=== PATIENT | female | born 1960 | race Caucasian/White ===

== ENCOUNTER 2017-12-14 13:55 | Observation (INO) ==
[2017-12-14] MEDS ORDERED: Aspirin 81 MG TAB.CHEW PO ONE (14:05)
--- NOTE | 2017-12-14 14:05 | Emergency Department Note ---
Disposition Clinical Impression: Tachycardia Acute exacerbation of CHF (congestive heart failure) Qualifiers: Heart failure type: combined systolic and diastolic Qualified Code(s): I50.43 - Acute on chronic combined systolic (congestive) and diastolic (congestive) heart failure Chest pain Qualifiers: Chest pain type: precordial pain Qualified Code(s): R07.2 - Precordial pain Cardiomyopathy Qualifiers: Cardiomyopathy type: unspecified Qualified Code(s): I42.9 - Cardiomyopathy, unspecified Dyspnea Qualifiers: Dyspnea type: shortness of breath Qualified Code(s): R06.02 - Shortness of breath; R06.00 - Dyspnea, unspecified; R06.01 - Orthopnea Disposition: Admitted As Inpatient Condition: Good Referrals: Belinda Capellan [Primary Care Provider] - Forms: ED Satisfaction Letter Chest Pain HPI - General Chief Complaint: ED Upper Respiratory Infection Stated Complaint: Chest tightness with back pain Time Seen by Provider: 12/14/17 14:00 Source: patient Mode of arrival: private vehicle Limitations: no limitations Vital Signs Reviewed: Yes Nursing Notes Reviewed: Yes - History of Present Illness HPI Narrative: Patient presents with history of increasing shortness of breath over the prior day. She has had dyspnea on exertion and orthopnea. She states she cannot lay down. With this she has chest tightness which she states is due to her breathing. She does have back pain is noted to have chronic back pain. She states that she has had increased oxygen need and she usually uses oxygen at night. She will reports a slight cough which is nonproductive. She questions low-grade fever or chills. She denies any increased lower external he swelling but think she is maybe gained a couple pounds. She denies diaphoresis, nausea or recent change in medicines. She relates she had something similar couple weeks ago and was admitted to [facility] with congestive heart failure. She states this feels like her typical congestive heart failure. She relates that at home she has had a heart rate of about 108 and her blood pressures have been high for her. She states she had a reading of 168 /114 at home. Pt complaint: chest pain, other (Shortness of breath) Onset (ago): day(s) (1) Duration: gradually worsening Onset: during rest Pain Location: left chest, right chest Severity: mild, moderate Quality: tightness Pain Radiation: back Improves with: rest Worsens with: exertion, supine Associated symptoms: Reports: dyspnea, fever. Denies: nausea, vomiting, diaphoresis, syncope, palpitations, cough, leg swelling Treatments prior to arrival chest pain: none - Related Data Home Medications Medication Instructions Recorded Confirmed Losartan [Cozaar] 100 mg PO DAILY 04/29/15 12/14/17 Atorvastatin [Lipitor] 40 mg PO HS 05/09/17 12/14/17 Carvedilol [Coreg] 25 mg PO BIDWM 05/09/17 12/14/17 Diltiazem HCl [Diltiazem 12Hr ER] 120 mg PO DAILY 05/09/17 12/14/17 Potassium Chloride [K-Tab ER] 40 meq PO TID 05/09/17 12/14/17 Spironolactone [Aldactone] 25 mg PO DAILY 05/09/17 12/14/17 Bumetanide [Bumex] 1 mg PO BID 10/05/17 12/14/17 Polyethylene Glycol 3350 [MiraLAX] 17 gm PO DAILY 11/17/17 12/14/17 Sertraline [Zoloft] 100 mg PO DAILY 11/17/17 12/14/17 Alendronate Sodium [Fosamax] 70 mg PO QWEEK 11/22/17 12/14/17 Baclofen 20 mg PO TID 11/22/17 12/14/17 Cyclobenzaprine [Flexeril] 10 mg PO TID PRN 11/22/17 12/14/17 Ranitidine HCl [Acid Efficiency Analyst] 150 mg PO BID 11/22/17 12/14/17 Rivaroxaban [Xarelto] 10 mg PO DAILY 11/22/17 12/14/17 Tramadol HCl [Ultram] 50 mg PO QID PRN 11/22/17 12/14/17 Previous Rx's Medication Instructions Recorded HYDROcodone/Acet 5/325 mg [[place] 1 tab PO Q6H PRN #16 tab 09/06/17 5-325 mg] Metoprolol [Lopressor] 12.5 mg PO BID tablet 11/26/17 Nitrofurantoin (BID) [Macrobid] 100 mg PO BIDWM #12 capsule 11/26/17 Omeprazole [PriLOSEC] 40 mg PO DAILY #30 capsule. 11/26/17 Ondansetron ODT [Zofran ODT] 4 mg PO TID PRN #24 tab.rapdis 11/26/17 Phenazopyridine [Pyridium] 200 mg PO TID #8 tablet 11/26/17 Allergies Allergy/AdvReac Type Severity Reaction Status Date / Time diphenhydramine Allergy Rash Verified 11/22/17 13:50 [From Benadryl] morphine Allergy Rash Verified 11/22/17 13:50 Tetanus Vaccines and Toxoid Allergy See Verified 11/22/17 13:50 [Tetanus Vaccines & Toxoid] Comments All systems ED: reviewed and negative except as stated. Chest Pain PMH - Past Medical History Medical history: Reports: atrial fibrillation (With anticoagulation), cardiomyopathy (Ejection fraction 15-20% with chronic diastolic dysfunction), CHF, hyperlipidemia, hypertension, valvular heart disease, other (Chronic back pain, chronic elevated troponin thought secondary to demand ischemia (0.03-0.07) ) Surgical history: Reports: appendectomy, cholecystectomy, hysterectomy, pacemaker/AICD, other (Bilateral carpal tunnel, right hip tumor removal) Psychiatric history: Reports: anxiety, depression [employer]MED SECURITY PROFESSIONAL history: Reports: no [employer]MED SECURITY PROFESSIONAL history - Social History Smoking Status: Never smoker Alcohol use: Reports: none Drug use: Reports: none Physical Exam - General Limitations: no limitations General appearance: alert, in distress (Mild) - Head Head exam: atraumatic, normocephalic, normal inspection - Eye Eye exam: Present: normal appearance, PERRL, EOMI. Absent: scleral icterus, conjunctival injection - ENT ENT exam: normal exam, normal oropharynx, mucous membranes moist - Neck Neck exam: Present: normal inspection, full ROM, trachea midline. Absent: tenderness, lymphadenopathy - Chest Chest inspection: Present: normal inspection, symmetric chest wall rise. Absent : tenderness - Respiratory Respiratory exam: Present: normal lung sounds bilaterally. Absent: respiratory distress, wheezes, prolonged expiratory phase - Cardiovascular Cardiovascular exam: Present: regular rate, normal rhythm, tachycardia, normal heart sounds. Absent: JVD - Abdominal Exam Abdominal exam: Present: soft, Non-Tender, normal bowel sounds. Absent: tenderness, distention, guarding, rebound, rigidity - Extremities Exam Extremities exam: Present: normal inspection, full ROM, normal capillary refill. Absent: tenderness, pedal edema, calf tenderness - Expanded Lower Extremity Exam Neurovascular/Tendon exam: Present: normal capillary refill. Absent: motor deficit, sensory deficit, tendon deficit Gait: observed and normal - Back Exam Back exam: Present: normal inspection, full ROM. Absent: tenderness - Neurological Exam Neurological exam: Present: alert, oriented X3, normal gait - Psychiatric Psychiatric exam: Present: normal affect, normal mood. Absent: agitated, anxious - Skin Skin exam: Present: warm, dry, intact, normal color. Absent: diaphoresis, pallor Course Course Narrative: 1505: With return of lab, EKG and x-ray reviewed the patient's results and extensive recent testing with her. She remains mildly dyspneic with a heart rate in the range of 120 to 130 with frequent PVCs. I recommended further observation on monitor with some careful diuresis. I do not believe that transfer to tertiary facility will likely result in further testing or outcome. The patient has now had to urinate after her dose of Lasix and we will be sending him back given her initial low-grade temperature. Repeat oral temperature was 98.4. A page has been placed to Dr. Tuttle to discuss her observation at this facility. Her ultimate disposition will be coordinated after this discussion. 1515: Care has been discussed with Dr. Tuttle. He is agreeable with observation at this facility. Verbal orders are obtained for her observation period Vital Signs Temperature 100.9 F H 12/14/17 13:59 Pulse Rate 132 12/14/17 13:59 Respiratory Rate 24 12/14/17 13:59 Blood Pressure 166/84 12/14/17 13:59 O2 Sat by Pulse Oximetry 94 12/14/17 13:59 Temperature 100.9 F H 12/14/17 13:59 Pulse Rate 125 12/14/17 14:49 Respiratory Rate 15 12/14/17 14:49 Blood Pressure 151/99 12/14/17 14:49 O2 Sat by Pulse Oximetry 95 12/14/17 14:49 Oxygen Delivery Oxygen Delivery Nasal Cannula Chest Pain - Differential Diagnosis Likely: atypical chest pain, chest pain - Medical Records Medical records reviewed: Yes I reviewed the patient's medical records. Patient's admission from November 20 his been reviewed. She did have extensive evaluation. She had a echocardiogram showing an ejection fraction of 15-20% with diastolic dysfunction and some valvular heart disease. She had negative CT PE study, CT abdomen and pelvis, bilateral lower extremity venous Dopplers and EGD. It is noted in the records that she had a negative heart catheterization at [place] in September 2017. - Lab Data Lab results reviewed: Yes I reviewed the patient's lab results. Result diagrams: 12/14/17 14:25 12/14/17 14:25 Lab Results 12/14/17 12/14/17 12/14/17 Range/Units 14:25 14:25 14:25 WBC 10.1 (4.3-11.1) K/mcL RBC 4.39 (3.82-4.97) M/mcL Hgb 13.3 (11.5-15.4) g/dL Hct 40.5 (35.3-44.9) % MCV 92.3 (83.0-100.0) fL MCH 30.3 (28.0-33.3) pg MCHC 32.8 (31.6-35.5) g/dL RDW 15.4 H (11.5-14.5) % Plt Count 260 (140-400) K/mcL MPV 10.6 (9.4-12.4) fL Immature Gran % 0.4 (0-4) % Seg Neutrophils % 77.7 % Lymphocytes % 15.7 % Monocytes % 3.7 % Eosinophils % 2.1 % Basophils % 0.4 % Neutrophils # 7.9 (1.6-8.9) K/mcL Lymphocytes # 1.6 (0.6-4.6) K/mcL Monocytes # 0.4 (0.0-1.3) K/mcL Eosinophils # 0.2 (0.0-0.6) K/mcL Basophils # 0.0 (0.0-0.2) K/mcL PT 12.1 (9.4-12.1) Seconds INR 1.1 APTT 28.1 (26.0-36.0) Seconds Sodium (136-145) mEq/L Potassium (3.5-5.1) mEq/L Chloride (98-107) mEq/L Carbon Dioxide (23-29) mEq/L BUN (6-20) mg/dL Creatinine (0.60-1.20) mg/dL Est GFR ( Amer) (> 60) Est GFR (Non-Af Amer) (> 60) BUN/Creatinine Ratio (6-26) Glucose (70-105) mg/dL Calculated Osmolality (280-300) Lactic Acid (0.5-2.2) mmol/L Calcium (8.6-10.3) mg/dL Troponin I (< 0.04) ng/mL B-Natriuretic Peptide 857 H (Less than 100) pg/mL 12/14/17 12/14/17 Range/Units 14:25 14:25 WBC (4.3-11.1) K/mcL RBC (3.82-4.97) M/mcL Hgb (11.5-15.4) g/dL Hct (35.3-44.9) % MCV (83.0-100.0) fL MCH (28.0-33.3) pg MCHC (31.6-35.5) g/dL RDW (11.5-14.5) % Plt Count (140-400) K/mcL MPV (9.4-12.4) fL Immature Gran % (0-4) % Seg Neutrophils % % Lymphocytes % % Monocytes % % Eosinophils % % Basophils % % Neutrophils # (1.6-8.9) K/mcL Lymphocytes # (0.6-4.6) K/mcL Monocytes # (0.0-1.3) K/mcL Eosinophils # (0.0-0.6) K/mcL Basophils # (0.0-0.2) K/mcL PT (9.4-12.1) Seconds INR APTT (26.0-36.0) Seconds Sodium 139 (136-145) mEq/L Potassium 3.9 (3.5-5.1) mEq/L Chloride 104 (98-107) mEq/L Carbon Dioxide 26 (23-29) mEq/L BUN 21 H (6-20) mg/dL Creatinine 0.91 (0.60-1.20) mg/dL Est GFR ( Amer) > 60 (> 60) Est GFR (Non-Af Amer) > 60 (> 60) BUN/Creatinine Ratio 23 (6-26) Glucose 132 H (70-105) mg/dL Calculated Osmolality 293 (280-300) Lactic Acid 1.5 (0.5-2.2) mmol/L Calcium 9.8 (8.6-10.3) mg/dL Troponin I 0.03 (< 0.04) ng/mL B-Natriuretic Peptide (Less than 100) pg/mL - Radiology Data Radiology results reviewed: Yes I reviewed the patient's radiology results. Single view chest x-rays performed. This shows marked cardiomegaly with interstitial increased lung markings consistent with pulmonary edema. I do not see evidence for effusion or local infiltrate. This is on my interpretation. Impressions Chest X-Ray 12/14/17 14:05 IMPRESSION: 1. Central congestion without overt pulmonary edema. 2. Small left pleural effusion. 3. Stable mild to moderate enlargement of the cardiac silhouette. D/ / Jonathan Red MD / Jonathan Red MD Interpreting Provider: Jonathan Red MD - EKG Data EKG attestation: Yes I reviewed and interpreted this EKG. EKG results narrative: EKG demonstrates electronic paced rhythm with a rate of 127, axis of 94, AR interval 119 a QT/QTC of 355/4:30. She does have a PVC present. No other acute abnormalities are noted. This is on my interpretation. Interpretation: no acute changes Heart Score - Score History: Moderately Suspicious EKG: Normal Age: 45-65 Risk Factors: Equal/Greater than 3 risk factor or history of atherosclerotic disease Troponin: Less than normal limit HEART Score Total: 4
[2017-12-14] MEDS ORDERED: *HR* HYDROcodone/Acet 5/325 mg TABLET PO ONE (14:31)
[2017-12-14] MEDS ORDERED: Furosemide 40 MG/4 ML VIAL IVP ONE (14:31)
[2017-12-14] MEDS ORDERED: Ondansetron 4 MG/2 ML VIAL IVP ONE (14:31)
[2017-12-14 14:43] LABS: Basophils % 0.4 %; Eosinophils # 0.2 K/mcL (0.0-0.6); Eosinophils % 2.1 %; Hematocrit 40.5 % (35.3-44.9); Hemoglobin 13.3 g/dL (11.5-15.4); Immature Granulocytes % 0.4 % (0-4); Lymphocytes # 1.6 K/mcL (0.6-4.6); Lymphocytes % 15.7 %; Mean Corpuscular HGB Conc 32.8 g/dL (31.6-35.5); Mean Corpuscular Hemoglobin 30.3 pg (28.0-33.3); Mean Corpuscular Volume 92.3 fL (83.0-100.0); Mean Platelet Volume 10.6 fL (9.4-12.4); Monocytes # 0.4 K/mcL (0.0-1.3); Monocytes % 3.7 %; Neutrophils # 7.9 K/mcL (1.6-8.9); Platelet Count 260 K/mcL (140-400); Red Blood Count 4.39 M/mcL (3.82-4.97); Red Cell Distribution Width 15.4 % (11.5-14.5); Segmented Neutrophils % 77.7 %
[2017-12-14 14:46] LABS: INR 1.1; Prothrombin Time 12.1 Seconds (9.4-12.1)
[2017-12-14 14:49] LABS: Activated Partial Thrombo Time 28.1 Seconds (26.0-36.0)
[2017-12-14 14:57] LABS: BUN/Creatinine Ratio 23 (6-26); Blood Urea Nitrogen 21 mg/dL (6-20); Calcium 9.8 mg/dL (8.6-10.3); Carbon Dioxide 26 mEq/L (23-29); Chloride 104 mEq/L (98-107); Glucose 132 mg/dL (70-105); Osmolality,Calculated 293 (280-300); Potassium 3.9 mEq/L (3.5-5.1); Sodium 139 mEq/L (136-145); eGFR For African Americans > 60 (> 60); eGFR For Non-African Americans > 60 (> 60)
[2017-12-14 14:58] LABS: Troponin I 0.03 ng/mL (< 0.04)
[2017-12-14 15:25] LABS: Bilirubin,Urine Negative (Negative); Blood,Urine Negative (Negative); Clarity,Urine Slightly Cloudy (Clear); Glucose,Urine (UA) Normal (Normal); Ketones,Urine Negative (Negative); Leukocyte Esterase,Urine Small (Negative); Nitrite,Urine Negative (Negative); PH,Urine 7.5 pH Units (5.0-8.0); Protein,Urine 30 mg/dL (Neg-Trace); Urobilinogen,Urine Normal (Normal)
[2017-12-14 15:30] LABS: Color,Urine Light Yellow (Yellow)
[2017-12-14 15:33] LABS: RBC,Urine 0-3 per hpf (0-3); Squamous Epithelial Cell,Urine Moderate per lpf (None-Few)
[2017-12-14 15:34] LABS: Bacteria,Urine Moderate per hpf (None-Few)
--- NOTE | 2017-12-14 16:23 | Electrocardiograph Report ---
[place] [id number] Test Date: 2017-12-14 Pat Name: Shani Bustos Department: 9201 Room: [facility] Gender: F Visual Education Director: [id number] : 1960 Requested By: Ramón Francisco Order Number: [id number] Reading MD: Charlie Frank Measurements Intervals [place] Rate: 127 P: 74 [place]: 119 QRS: 94 QRSD: 118 T: 42 QT: 355 QTc: 430 Interpretive Statements ELECTRONIC VENTRICULAR PACEMAKER ABNORMAL RHYTHM ECG Electronically Signed On 12-14-2017 16:21:54 EDT by Charlie Frank
[2017-12-14] MEDS ORDERED: Naloxone 0.4 MG/ML INJ IVP PRN (17:46)
[2017-12-14] MEDS: *HR* HYDROcodone/Acet 5/325 mg TABLET PO PRN (18:18)
--- NOTE | 2017-12-14 19:37 | Internal Med History&Physical ---
Date of Encounter: 12/14/17 Time of Encounter: 18:50 Assessment and Plan (1) Chest pain Current visit: Yes Status: Acute Doubt myocardial ischemic origin from history and physical. There appears to be a chest wall component. I will give her a dose of Naprosyn and start prednisone for anti-inflammatory/pain Qualifiers: Chest pain type: precordial pain Qualified Code(s): R07.2 - Precordial pain (2) Cardiomyopathy Current visit: Yes Status: Acute Nonischemic cardiomyopathy. We will continue present regimen and start low- dose isosorbide. Qualifiers: Cardiomyopathy type: unspecified Qualified Code(s): I42.9 - Cardiomyopathy , unspecified (3) Atrial fibrillation Current visit: Yes Status: Chronic Continue Xarelto, Coreg and Cardizem. Will add Lanoxin for rate control. Qualifiers: Atrial fibrillation type: unspecified Qualified Code(s): I48.91 - Unspecified atrial fibrillation (4) Hypertension Current visit: No Status: Chronic Continue Bumex, Coreg, Cardizem, Cozaar, and Aldactone. Qualifiers: Hypertension type: essential hypertension Qualified Code(s): I10 - Essential (primary) hypertension Internal Medicine - H&P: HPI Chief complaint: Dyspnea and chest discomfort Admitted From: Emergency Dept Plans for Post Hospital Care: Home History of present illness: Ms. Bustos is a 57 year old female who came to emergency room stating she had chest discomfort intermittently for several weeks and worsening dyspnea on exertion. She describes the chest discomfort as a "tightness" that was intermittent and not related consistently to activity. Her dyspnea was related to activity and has been increasing in severity for several months. She has orthopnea consistently. She was evaluated in emergency room and admitted to [facility] floor for ongoing care needs. Her cardiovascular history is significant for hypertension and chronic atrial fibrillation. She had ICD/pacemaker placed in 2002 for nonischemic cardiomyopathy. She had replacement unit in September 2013. She had heart catheter in 2008 which was negative and reports a repeat heart catheter done in September 2017 at [facility] showed no significant stenoses. She had chest CTA during in November 2017 [facility] hospitalization without evidence of pulmonary embolus seen. Echocardiogram done 11/21/2017 showed LVEF of 15-20%. The interventricular septum and posterior wall thickness measurements were 0.97 and 1.307 m respectively. She reports an echocardiogram done at [facility] September 2017 showed LVEF of 30-35%. She denies history of DVT or pulmonary embolus. Past Med Surg Social Fam HX - Past Medical History Medical history: atrial fibrillation, cancer, cardiomyopathy, CHF, hyperlipidemia, hypertension, myocardial infarction, valvular heart disease, other Psychiatric history: anxiety, depression - Past Surgical History Surgical History: appendectomy, cholecystectomy, hysterectomy, pacemaker/AICD, other - Social History Smoking Status: Never smoker Smokeless Tobacco Status: No Alcohol use: none Drug use: none - Family History Mother Family Member Ethnicity: Non- Living Status: Still Living Hx Family Cardiac Disorders: Yes Hx Family Endocrine Disorder: Yes Father Family Member Ethnicity: Non- Living Status: Still Living Hx Family Endocrine Disorder: Yes Internal Medicine - H&P: Meds Losartan [Cozaar] 100 mg PO DAILY 04/29/15 [History] Atorvastatin [Lipitor] 40 mg PO HS 05/09/17 [History] Carvedilol [Coreg] 25 mg PO BIDWM 05/09/17 [History] Diltiazem HCl [Diltiazem 12Hr ER] 120 mg PO DAILY 05/09/17 [History] Potassium Chloride [K-Tab ER] 40 meq PO TID 05/09/17 [History] Spironolactone [Aldactone] 25 mg PO DAILY 05/09/17 [History] HYDROcodone/Acet 5/325 mg [[place] 5-325 mg] 1 tab PO Q6H PRN #16 tab 09/06/17 [Rx ] Bumetanide [Bumex] 1 mg PO BID 10/05/17 [History] Polyethylene Glycol 3350 [MiraLAX] 17 gm PO DAILY 11/17/17 [History] Sertraline [Zoloft] 100 mg PO DAILY 11/17/17 [History] Alendronate Sodium [Fosamax] 70 mg PO QWEEK 11/22/17 [History] Baclofen 20 mg PO TID 11/22/17 [History] Cyclobenzaprine [Flexeril] 10 mg PO TID PRN 11/22/17 [History] Ranitidine HCl [Acid Order Desk Caller] 150 mg PO BID 11/22/17 [History] Rivaroxaban [Xarelto] 10 mg PO DAILY 11/22/17 [History] Tramadol HCl [Ultram] 50 mg PO QID PRN 11/22/17 [History] Metoprolol [Lopressor] 12.5 mg PO BID tablet 11/26/17 [Rx] Omeprazole [PriLOSEC] 40 mg PO DAILY #30 capsule. 11/26/17 [Rx] Ondansetron ODT [Zofran ODT] 4 mg PO TID PRN #24 tab.rapdis 11/26/17 [Rx] 3 Allergy/AdvReac Type Severity Reaction Status Date / Time diphenhydramine Allergy Rash Verified 11/22/17 13:50 [From Benadryl] morphine Allergy Rash Verified 11/22/17 13:50 Tetanus Vaccines and Toxoid Allergy See Verified 11/22/17 13:50 [Tetanus Vaccines & Toxoid] Comments All Systems PM: A 10-system review of systems was performed and is negative for pertinent findings except as documented above in the HPI. Review of systems: Gen.: Her weight has decreased from 79.832 kg on 05/03/2015 to 75.948 kg now Cardiovascular: As per history of present illness Respiratory: She smoked from age [age] never up to one pack per day. She has not had PFTs but has been prescribed oxygen which she uses at bedtime and when necessary during the daytime. She has not been tested for sleep apnea. GI: She is status post cholecystectomy. She had colon polyps removed during a colonoscopy approximately 2011. She denies disorders of her liver or exocrine pancreas : She denies hematuria dysuria or kidney stones Neurologic: She denies large distribution strokes or seizures Endocrine: She denies diabetes or thyroid disease or hyperlipidemia Hematology/oncology: She denies blood disorders cancers or anemia Psychiatric: She denies anxiety depression or other mental health issues [place] skeletal: She denies arthritis gout or osteoporosis - Constitutional Vitals: Temp Pulse Resp BP Pulse Ox 98.9 F 127 18 140/91 92 12/14/17 18:25 12/14/17 18:25 12/14/17 18:25 12/14/17 18:25 12/14/17 18:25 Exam: Gen.: She is a well-developed well-nourished female resting comfortably in bed who appears in no severe distress. HEENT: Head is atraumatic and normal cephalic. Eyes: EOMI. There is no scleral icterus. Mouth: Mucosa is moist. Neck: Supple and nontender. There is no thyromegaly or adenopathy noted. Heart: Regular without murmurs gallops or ectopics Chest: She has tenderness in her costosternal joints more on the left than the right to compression. She states "that is the pain" when pressure is applied. Lungs: No wheezes crackles or egophony are heard Abdomen: Soft and nontender. No masses or guarding are noted. Extremities: There is no cyanosis edema or clubbing noted. Dorsalis pedis and posttibial pulses are 1-2 over 2 bilaterally. Neurologic: Mental status: She is talkative and a good historian. Cranial nerves: Smile is symmetric. Forehead wrinkles bilaterally. Tongue protrudes midline. EOMI. Motor: There is no pronator drift. Cerebellar: Finger to nose is intact bilaterally. Skin: Warm and dry Internal Med - H&P Results - Labs CBC & Chem 7: 12/14/17 14:25 12/14/17 14:25
[2017-12-14] MEDS: traMADol 50 MG TABLET PO PRN (20:08)
[2017-12-14] MEDS: *HR* Digoxin 0.25 MG TABLET PO SCH (20:09)
[2017-12-14] MEDS: Baclofen 10 MG TABLET PO SCH (20:09)
[2017-12-14] MEDS: Bumetanide 1 MG TABLET PO SCH (20:09)
[2017-12-14] MEDS: Isosorbide MONOnitrate (24 HR) 30 MG TAB.ER.24H PO SCH (20:14)
[2017-12-14] MEDS ORDERED: Famotidine 20 MG TABLET PO SCH (21:00)
[2017-12-15] MEDS: *HR* HYDROcodone/Acet 5/325 mg TABLET PO PRN ×2 (00:17→21:38)
[2017-12-15] MEDS: Ondansetron ODT 4 MG TAB.RAPDIS PO PRN ×2 (01:11→08:13)
[2017-12-15] MEDS: *HR* Promethazine 25 MG/ML VIAL IVP PRN (02:45)
[2017-12-15 03:18] LABS: Chol/HDL Ratio 4.3 (0-4.9); Magnesium 1.9 mg/dL (1.6-2.6)
[2017-12-15] MEDS ORDERED: 0.9 % Sodium Chloride 250 ML IVC ONE (04:57)
[2017-12-15] MEDS: predniSONE 20 MG TABLET PO SCH ×2 (08:14→16:06)
[2017-12-15] MEDS: *HR* Rivaroxaban 10 MG TABLET PO SCH (08:14)
[2017-12-15] MEDS: Bumetanide 1 MG TABLET PO SCH ×2 (08:26→14:32)
[2017-12-15] MEDS: Spironolactone 25 MG TABLET PO SCH (08:26)
[2017-12-15] MEDS: *HR* Digoxin 0.25 MG TABLET PO SCH (08:27)
[2017-12-15] MEDS: Diltiazem SR (12hr) 60 MG CAPSULE PO SCH (08:27)
[2017-12-15] MEDS: Isosorbide MONOnitrate (24 HR) 30 MG TAB.ER.24H PO SCH (08:27)
[2017-12-15] MEDS: Baclofen 10 MG TABLET PO SCH ×3 (08:28→20:55)
[2017-12-15] MEDS: Acetaminophen 325 MG TABLET PO PRN ×2 (08:38→16:12)
--- NOTE | 2017-12-15 11:23 | Internal Med Progress Note ---
Date of Encounter: 12/15/17 Time of Encounter: 11:10 - Assessment and plan (1) Chest pain Current Visit: Yes Status: Acute Assessment and plan: December 15. Serial troponins negative. Continue prednisone for possible costochondritis. Chest CT 11/20/2017 showed no acute pathology. Qualifiers: Chest pain type: precordial pain Qualified Code(s): R07.2 - Precordial pain (2) Cardiomyopathy Current Visit: Yes Status: Acute Assessment and plan: December 15. Continue present regimen. BN peptide slightly higher today at 993. Qualifiers: Cardiomyopathy type: unspecified Qualified Code(s): I42.9 - Cardiomyopathy , unspecified (3) Atrial fibrillation Current Visit: Yes Status: Chronic Assessment and plan: December 15. Continue Xarelto, Coreg, Cardizem, and Lanoxin. Qualifiers: Atrial fibrillation type: unspecified Qualified Code(s): I48.91 - Unspecified atrial fibrillation (4) Hypertension Current Visit: No Status: Chronic Assessment and plan: December 15. Will hold Bumex, Coreg, Cardizem, Cozaar, and Aldactone since blood pressure low/borderline low. Qualifiers: Hypertension type: essential hypertension Qualified Code(s): I10 - Essential (primary) hypertension - Subjective Interval history: December 15. She has no new complaints. She reports her chest pain is unchanged. Dyspnea has slightly lessened. - Constitutional Vitals: Temp Pulse Resp BP Pulse Ox 97.9 F 87 18 92/61 97 12/15/17 10:54 12/15/17 10:54 12/15/17 10:54 12/15/17 10:54 12/15/17 10:54 Exam: She is resting in bed and appears in no acute distress. Heart rate has decreased to approximately 85/m. Oxygen saturation is 98%. She has some discomfort in her costosternal joints to palpation. I reviewed her medications and lab results. I discussed with her that her vital signs show significant decrease in blood pressure Internal Medicine: Result - Labs CBC & Chem 7: 12/14/17 14:25 12/14/17 14:25 Labs: Cardiac Enzymes 12/14/17 12/15/17 12/15/17 Range/Units 20:27 02:46 08:46 Troponin I 0.04 H* 0.03 0.03 (< 0.04) ng/mL - ABG Interpretation ABG results: PT/INR, D-dimer PT 12.1 Seconds (9.4-12.1) 12/14/17 14:25 - VTE Documentation of Mechanical Device: Graduated compression elastic hosiery Consult Discharge Plan - Plan Referrals: Belinda Capellan [Primary Care Provider] - 1 week
[2017-12-16] MEDS: Ondansetron ODT 4 MG TAB.RAPDIS PO PRN ×2 (01:50→21:17)
[2017-12-16] MEDS: traMADol 50 MG TABLET PO PRN (01:50)
[2017-12-16] MEDS: *HR* HYDROcodone/Acet 5/325 mg TABLET PO PRN ×2 (04:36→23:33)
[2017-12-16] MEDS: ALPRAZolam 0.5 MG TABLET PO PRN ×4 (04:37→23:33)
[2017-12-16] MEDS: predniSONE 20 MG TABLET PO SCH (08:42)
[2017-12-16] MEDS: *HR* Rivaroxaban 10 MG TABLET PO SCH (08:42)
[2017-12-16] MEDS: Spironolactone 25 MG TABLET PO SCH (08:45)
[2017-12-16] MEDS: Diltiazem SR (12hr) 60 MG CAPSULE PO SCH (08:46)
[2017-12-16] MEDS: Bumetanide 1 MG TABLET PO SCH ×2 (08:46→15:31)
[2017-12-16] MEDS: Isosorbide MONOnitrate (24 HR) 30 MG TAB.ER.24H PO SCH (08:46)
[2017-12-16] MEDS: *HR* Digoxin 0.25 MG TABLET PO SCH (08:47)
[2017-12-16] MEDS: Baclofen 10 MG TABLET PO SCH (08:47)
--- NOTE | 2017-12-16 09:41 | Internal Med Progress Note ---
Date of Encounter: 12/16/17 Time of Encounter: 09:15 - Assessment and plan (1) Chest pain Current Visit: Yes Status: Acute Assessment and plan: December 15. Serial troponins negative. Continue prednisone for possible costochondritis. Chest CT 11/20/2017 showed no acute pathology. December 16. We will discontinue prednisone to avoid steroid psychosis. Qualifiers: Chest pain type: precordial pain Qualified Code(s): R07.2 - Precordial pain (2) Cardiomyopathy Current Visit: Yes Status: Acute Assessment and plan: December 15. Continue present regimen. BN peptide slightly higher today at 993. December 3. Will hold blood pressure medications since blood pressure significantly decreased from admission. Qualifiers: Cardiomyopathy type: unspecified Qualified Code(s): I42.9 - Cardiomyopathy , unspecified (3) Atrial fibrillation Current Visit: Yes Status: Chronic Assessment and plan: December 15. Continue Xarelto, Coreg, Cardizem, and Lanoxin. December 16. Continue Xarelto and Lanoxin. Will hold Coreg and Cardizem because of borderline low blood pressure. Qualifiers: Atrial fibrillation type: unspecified Qualified Code(s): I48.91 - Unspecified atrial fibrillation (4) Hypertension Current Visit: No Status: Chronic Assessment and plan: December 2. Will hold Bumex, Coreg, Cardizem, Cozaar, and Aldactone since blood pressure low/borderline low. December 3. We will hold medication since blood pressure borderline low. Qualifiers: Hypertension type: essential hypertension Qualified Code(s): I10 - Essential (primary) hypertension (5) Mental status change Current Visit: Yes Status: Acute Assessment and plan: December 16. We will order head CT. We will discontinue prednisone and muscle relaxers. We will recheck labs. Qualifiers: Altered mental status type: unspecified Qualified Code(s): R41.82 - Altered mental status, unspecified - Subjective Interval history: December 15. She has no new complaints. She reports her chest pain is unchanged. Dyspnea has slightly lessened. December 16. She complains of her head not feeling right. She repeatedly states this but cannot give details. She denies pain in her body otherwise. She denies diplopia or visual field deficits. She denies subjective weakness of extremities. - Constitutional Vitals: Temp Pulse Resp BP Pulse Ox 98.8 F 77 22 108/73 98 12/16/17 06:56 12/16/17 06:56 12/16/17 06:56 12/16/17 06:56 12/16/17 06:56 Exam: She is lying in bed and appears anxious and almost tearful. She repeatedly states her head feels "strange". Smile is symmetric forehead wrinkles bilaterally tongue protrudes midline EOMI. She has no pronator drift. Cerebellar testing shows finger-nose intact bilaterally. She has 5/5 strength on the right ankle flexion and extension against resistance and 4/5 strength on the left. Internal Medicine: Result - Labs CBC & Chem 7: 12/14/17 14:25 12/14/17 14:25 - ABG Interpretation ABG results: PT/INR, D-dimer PT 12.1 Seconds (9.4-12.1) 12/14/17 14:25 - VTE Documentation of Mechanical Device: Graduated compression elastic hosiery Consult Discharge Plan - Plan Referrals: Belinda Capellan [Primary Care Provider] - 1 week
[2017-12-16 10:41] LABS: Basophils % 0.3 %; Eosinophils # 0.1 K/mcL (0.0-0.6); Eosinophils % 0.6 %; Hematocrit 39.8 % (35.3-44.9); Hemoglobin 12.3 g/dL (11.5-15.4); Immature Granulocytes % 0.6 % (0-4); Lymphocytes # 2.6 K/mcL (0.6-4.6); Lymphocytes % 20.1 %; Mean Corpuscular HGB Conc 30.9 g/dL (31.6-35.5); Mean Corpuscular Hemoglobin 29.8 pg (28.0-33.3); Mean Corpuscular Volume 96.4 fL (83.0-100.0); Mean Platelet Volume 10.8 fL (9.4-12.4); Monocytes # 0.7 K/mcL (0.0-1.3); Monocytes % 5.4 %; Neutrophils # 9.4 K/mcL (1.6-8.9); Nucleated Red Blood Cells 0.2 /100 WBC (0); Platelet Count 300 K/mcL (140-400); Red Blood Count 4.13 M/mcL (3.82-4.97); Red Cell Distribution Width 15.7 % (11.5-14.5)
[2017-12-16 10:57] LABS: Calcium 9.7 mg/dL (8.6-10.3); Digoxin 0.5 ng/mL (0.8-2.0); Potassium 5.7 mEq/L (3.5-5.1)
[2017-12-16] MEDS: *HR* Promethazine 25 MG/ML VIAL IVP PRN (23:34)
[2017-12-17] MEDS: *HR* Promethazine 25 MG/ML VIAL IVP PRN (04:48)
[2017-12-17 06:20] LABS: Basophils # 0.1 K/mcL (0.0-0.2); Basophils % 0.6 %; Eosinophils # 0.2 K/mcL (0.0-0.6); Eosinophils % 1.3 %; Hematocrit 40.1 % (35.3-44.9); Hemoglobin 12.5 g/dL (11.5-15.4); Immature Granulocytes % 0.5 % (0-4); Lymphocytes # 3.6 K/mcL (0.6-4.6); Lymphocytes % 30.1 %; Mean Corpuscular HGB Conc 31.2 g/dL (31.6-35.5); Mean Corpuscular Volume 96.4 fL (83.0-100.0); Monocytes # 0.5 K/mcL (0.0-1.3); Monocytes % 4.2 %; Neutrophils # 7.5 K/mcL (1.6-8.9); Nucleated Red Blood Cells 0.3 /100 WBC (0); Platelet Count 292 K/mcL (140-400); Red Blood Count 4.16 M/mcL (3.82-4.97); Red Cell Distribution Width 15.9 % (11.5-14.5); Segmented Neutrophils % 63.3 %
[2017-12-17 06:40] LABS: Albumin 3.7 g/dL (3.5-5.7); Albumin/Globulin Ratio 1.3 (1.1-2.2); Bilirubin,Total 0.7 mg/dL (0.3-1.0); Calcium 9.4 mg/dL (8.6-10.3); Globulin 2.9 g/dL (2.4-3.5); Potassium 5.2 mEq/L (3.5-5.1); Total Protein 6.6 g/dL (6.4-8.9)
[2017-12-17] MEDS: *HR* Digoxin 0.25 MG TABLET PO SCH (09:19)
[2017-12-17] MEDS: Diltiazem SR (12hr) 60 MG CAPSULE PO SCH (09:19)
[2017-12-17] MEDS: Bumetanide 1 MG TABLET PO SCH ×2 (09:19→17:24)
[2017-12-17] MEDS: Isosorbide MONOnitrate (24 HR) 30 MG TAB.ER.24H PO SCH (09:19)
[2017-12-17] MEDS: *HR* Rivaroxaban 10 MG TABLET PO SCH (09:19)
[2017-12-17] MEDS: *HR* HYDROcodone/Acet 5/325 mg TABLET PO PRN ×2 (13:01→18:36)
--- NOTE | 2017-12-17 15:16 | Internal Med Progress Note ---
Date of Encounter: 12/17/17 Time of Encounter: 15:05 - Assessment and plan (1) Chest pain Current Visit: Yes Status: Acute Assessment and plan: December 2. Serial troponins negative. Continue prednisone for possible costochondritis. Chest CT 11/20/2017 showed no acute pathology. December 3. We will discontinue prednisone to avoid steroid psychosis. December 4. Observe without further workup at this time. Qualifiers: Chest pain type: precordial pain Qualified Code(s): R07.2 - Precordial pain (2) Cardiomyopathy Current Visit: Yes Status: Acute Assessment and plan: December 2. Continue present regimen. BN peptide slightly higher today at 993. December 3. Will hold blood pressure medications since blood pressure significantly decreased from admission. Qualifiers: Cardiomyopathy type: unspecified Qualified Code(s): I42.9 - Cardiomyopathy , unspecified (3) Atrial fibrillation Current Visit: Yes Status: Chronic Assessment and plan: December 2. Continue Xarelto, Coreg, Cardizem, and Lanoxin. December 3. Continue Xarelto and Lanoxin. Will hold Coreg and Cardizem because of borderline low blood pressure. December 4. Continue Xarelto and Lanoxin but withhold Cardizem and Coreg due to hypotension. Qualifiers: Atrial fibrillation type: unspecified Qualified Code(s): I48.91 - Unspecified atrial fibrillation (4) Hypertension Current Visit: No Status: Chronic Assessment and plan: December 2. Will hold Bumex, Coreg, Cardizem, Cozaar, and Aldactone since blood pressure low/borderline low. December 3. We will hold medication since blood pressure borderline low. Qualifiers: Hypertension type: essential hypertension Qualified Code(s): I10 - Essential (primary) hypertension (5) Mental status change Current Visit: Yes Status: Acute Assessment and plan: December 16. We will order head CT. We will discontinue prednisone and muscle relaxers. We will recheck labs. December for. Improved. We will continue to monitor and continue present management. Qualifiers: Altered mental status type: unspecified Qualified Code(s): R41.82 - Altered mental status, unspecified - Subjective Interval history: December 15. She has no new complaints. She reports her chest pain is unchanged. Dyspnea has slightly lessened. December 3. She complains of her head not feeling right. She repeatedly states this but cannot give details. She denies pain in her body otherwise. She denies diplopia or visual field deficits. She denies subjective weakness of extremities. May for. She has no new complaints. She reports slight discomfort still in her chest. She states she does not "feel right" but cannot further explain. She has poor recall of events yesterday. - Constitutional Vitals: Temp Pulse Resp BP Pulse Ox 97.7 F 61 20 87/51 90 12/17/17 14:27 12/17/17 14:27 12/17/17 14:27 12/17/17 14:27 12/17/17 14:27 Exam: She is resting comfortably in bed and appears in no acute distress. She is more interactive and follows commands better today than yesterday. She has decreased weakness on plantar flexion of the left ankle compared to the right. Dorsiflexion strength is symmetric. Arms show no pronator drift. Cerebellar testing shows finger to nose intact bilaterally. Sensation testing shows light touch intact bilaterally of the lower legs. I reviewed her medications and lab results. Internal Medicine: Result - Labs CBC & Chem 7: 12/17/17 05:27 12/17/17 05:27 Labs: Short CBC 12/17/17 Range/Units 05:27 WBC 11.9 H (4.3-11.1) K/mcL Hgb 12.5 (11.5-15.4) g/dL Hct 40.1 (35.3-44.9) % Plt Count 292 (140-400) K/mcL Neutrophils # 7.5 (1.6-8.9) K/mcL BMP 12/17/17 05:27 Sodium 138 Potassium 5.2 H Chloride 111 H Carbon Dioxide 20 L BUN 35 H Creatinine 1.23 H Glucose 88 Calcium 9.4 Liver Function 12/17/17 Range/Units 05:27 Total Bilirubin 0.7 (0.3-1.0) mg/dL AST 105 H (13-39) Units/L ALT 95 H (7-52) Units/L Alkaline Phosphatase 81 (34-104) Units/L Albumin 3.7 (3.5-5.7) g/dL - ABG Interpretation ABG results: PT/INR, D-dimer PT 12.1 Seconds (9.4-12.1) 12/14/17 14:25 - VTE Documentation of Mechanical Device: Graduated compression elastic hosiery Consult Discharge Plan - Plan Referrals: Belinda Capellan [Primary Care Provider] - 1 week
[2017-12-17] MEDS ORDERED: Ondansetron ODT 4 MG TAB.RAPDIS PO PRN (15:21)
[2017-12-17] MEDS: ALPRAZolam 0.5 MG TABLET PO PRN (21:42)
[2017-12-18] MEDS: *HR* HYDROcodone/Acet 5/325 mg TABLET PO PRN ×2 (02:14→08:38)
[2017-12-18 05:41] LABS: Basophils # 0.1 K/mcL (0.0-0.2); Basophils % 0.6 %; Eosinophils # 0.4 K/mcL (0.0-0.6); Eosinophils % 4.3 %; Hematocrit 35.7 % (35.3-44.9); Hemoglobin 11.2 g/dL (11.5-15.4); Immature Granulocytes % 0.6 % (0-4); Lymphocytes # 2.7 K/mcL (0.6-4.6); Lymphocytes % 31.8 %; Mean Corpuscular HGB Conc 31.4 g/dL (31.6-35.5); Mean Corpuscular Hemoglobin 30.3 pg (28.0-33.3); Mean Corpuscular Volume 96.5 fL (83.0-100.0); Mean Platelet Volume 10.7 fL (9.4-12.4); Monocytes # 0.6 K/mcL (0.0-1.3); Monocytes % 6.6 %; Neutrophils # 4.7 K/mcL (1.6-8.9); Platelet Count 229 K/mcL (140-400); Red Cell Distribution Width 15.9 % (11.5-14.5); Segmented Neutrophils % 56.1 %
[2017-12-18 06:05] LABS: Calcium 8.8 mg/dL (8.6-10.3)
[2017-12-18] MEDS: Bumetanide 1 MG TABLET PO SCH (08:38)
[2017-12-18] MEDS: *HR* Rivaroxaban 10 MG TABLET PO SCH (08:38)
[2017-12-18] MEDS: *HR* Digoxin 0.25 MG TABLET PO SCH (08:38)
[2017-12-18] MEDS: Isosorbide MONOnitrate (24 HR) 30 MG TAB.ER.24H PO SCH (08:38)
[2017-12-18 15:32] VITALS: BP 105/68
--- NOTE | 2017-12-18 15:55 | Discharge Summary ---
Date of Encounter: 12/18/17 Time of Encounter: 15:40 - Discharge Diagnosis (1) Chest pain Priority: Primary Status: Resolved Qualifiers: Chest pain type: precordial pain Qualified Code(s): R07.2 - Precordial pain (2) Cardiomyopathy Priority: Secondary Status: Chronic Qualifiers: Cardiomyopathy type: unspecified Qualified Code(s): I42.9 - Cardiomyopathy , unspecified (3) Atrial fibrillation Priority: Secondary Status: Chronic Qualifiers: Atrial fibrillation type: paroxysmal Qualified Code(s): I48.0 - Paroxysmal atrial fibrillation (4) Hypertension Priority: Secondary Status: Chronic Qualifiers: Hypertension type: essential hypertension Qualified Code(s): I10 - Essential (primary) hypertension (5) Mental status change Priority: Secondary Status: Acute Qualifiers: Altered mental status type: unspecified Qualified Code(s): R41.82 - Altered mental status, unspecified Hospital course: Ms. Bustos is a 57 year old female who came to emergency room stating she had chest discomfort intermittently for several weeks and worsening dyspnea on exertion. She describes the chest discomfort as a "tightness" that was intermittent and not related consistently to activity. Her dyspnea was related to activity and has been increasing in severity for several months. She has orthopnea consistently. She was evaluated in emergency room and admitted to [facility] for ongoing care needs. Initial orders were written by the emergency room physician. I saw her on December 14 and performed a history and physical. Repeat cardiac enzymes showed no evidence of myocardial damage. When I saw her did not think the pain was likely be a myocardial ischemic origin. There appeared to be chest wall origin component so I gave a single dose of Naprosyn and started prednisone. On December 15 the chest pain had lessened but she had hypotension so blood pressure medications were held. On December 16 she complained of her head feeling "strange". Head CT showed no acute pathology. Prednisone and muscle relaxers were discontinued. She had gradual improvement in her mental status and head sensation over the next 2 days. The etiology of the "strange" head sensation was not determined with certainty. She will remain off several medications at discharge. Several blood pressure medications were discontinued because of hypotension and hyperkalemia. Her blood pressure was stable but borderline low at discharge so she will remain off these medications. Her PCP can reevaluate. Xarelto was continued. Lanoxin was added to slow ventricular rate. Coreg and Cardizem will be discontinued because of borderline hypotension. On December 18 she felt stable for discharge home. She will follow with her PCP Belinda Byers CNP within 1 week. - Time Spent with Patient Total time spent providing and/or coordinating discharge services: - Discharge Medications Prescriptions: Digoxin [Lanoxin] 0.125 mg PO QOD #15 tablet Isosorbide MONOnitrate (24 HR) [Imdur] 30 mg PO DAILY #30 tab.er.24h Home Medications: Atorvastatin [Lipitor] 40 mg PO HS 05/09/17 [History] HYDROcodone/Acet 5/325 mg [[place] 5-325 mg] 1 tab PO Q6H PRN #16 tab 09/06/17 [Rx ] Bumetanide [Bumex] 1 mg PO BID 10/05/17 [History] Polyethylene Glycol 3350 [MiraLAX] 17 gm PO DAILY 11/17/17 [History] Sertraline [Zoloft] 100 mg PO DAILY 11/17/17 [History] Alendronate Sodium [Fosamax] 70 mg PO QWEEK 11/22/17 [History] Rivaroxaban [Xarelto] 10 mg PO DAILY 11/22/17 [History] Tramadol HCl [Ultram] 50 mg PO QID PRN 11/22/17 [History] Ondansetron ODT [Zofran ODT] 4 mg PO TID PRN #24 tab.rapdis 11/26/17 [Rx] Digoxin [Lanoxin] 0.125 mg PO QOD #15 tablet 12/18/17 [Rx] Isosorbide MONOnitrate (24 HR) [Imdur] 30 mg PO DAILY #30 tab.er.24h 12/18/17 [ Rx] Allergies/Adverse Reactions: 3 Allergy/AdvReac Type Severity Reaction Status Date / Time diphenhydramine Allergy Rash Verified 11/22/17 13:50 [From Benadryl] morphine Allergy Rash Verified 11/22/17 13:50 Tetanus Vaccines and Toxoid Allergy See Verified 11/22/17 13:50 [Tetanus Vaccines & Toxoid] Comments Date of admission: 12/14/17 16:02 Primary care physician: Belinda Byers - Constitutional Vitals: Temp Pulse Resp BP Pulse Ox 97.9 F 72 20 105/68 93 12/18/17 15:27 12/18/17 15:27 12/18/17 15:27 12/18/17 15:27 12/18/17 15:27 - Patient Status Disposition: Home, Self-Care Condition: Good Overall status at discharge: patient is progressing back to baseline - Discharge Instructions Follow Up With: Belinda Capellan [Primary Care Provider] - 1 week - Diet and Activity Activity: resume usual activities as tolerated Diet: advance to your usual diet - VTE Documentation of Mechanical Device: Graduated compression elastic hosiery
== END 2017-12-18 20:14 | disposition home or self-care (01) ==
LOC: INPPIK 13:55 → EMEROOPIK 13:55 → INPPIK 17:21
PROVIDERS: ADMIT Internal Medicine; ATTEND Internal Medicine

== ENCOUNTER 2018-01-21 08:53 | Observation (INO) ==
[2018-01-21] MEDS ORDERED: *HR* Metoprolol 5 MG/5 ML VIAL IVP ONE (09:24)
[2018-01-21] MEDS ORDERED: Ondansetron 4 MG/2 ML VIAL IVP ONE (09:26)
[2018-01-21] MEDS: Nitroglycerin 0.4 MG TAB.SUBL SL STA ×3 (09:31→09:41)
[2018-01-21 09:43] LABS: Basophils % 0.4 %; Eosinophils # 0.3 K/mcL (0.0-0.6); Eosinophils % 3.2 %; Hematocrit 43.6 % (35.3-44.9); Hemoglobin 14.2 g/dL (11.5-15.4); Immature Granulocytes % 0.6 % (0-4); Lymphocytes # 1.8 K/mcL (0.6-4.6); Lymphocytes % 17.7 %; Mean Corpuscular HGB Conc 32.6 g/dL (31.6-35.5); Mean Corpuscular Hemoglobin 29.6 pg (28.0-33.3); Monocytes # 0.4 K/mcL (0.0-1.3); Monocytes % 4.3 %; Neutrophils # 7.4 K/mcL (1.6-8.9); Platelet Count 196 K/mcL (140-400); Red Blood Count 4.79 M/mcL (3.82-4.97); Red Cell Distribution Width 14.9 % (11.5-14.5); Segmented Neutrophils % 73.8 %
[2018-01-21 09:49] LABS: Prothrombin Time 10.6 Seconds (9.4-12.1)
--- NOTE | 2018-01-21 09:49 | Emergency Department Note ---
Disposition Clinical Impression: Chest pain Qualifiers: Chest pain type: unspecified Qualified Code(s): R07.9 - Chest pain, unspecified Disposition: Admitted As Inpatient Condition: Fair Time of Disposition: 10:20 (Dr Tuttle) Chest Pain HPI - General Chief Complaint: ED Chest Pain Stated Complaint: chest pain Time Seen by Provider: 01/21/18 09:13 Source: patient Limitations: no limitations Vital Signs Reviewed: Yes Nursing Notes Reviewed: Yes - History of Present Illness HPI Narrative: 7-year-old female presents to the ED secondary to chest pain. The patient woke up with chest discomfort on the left chest that seems to radiate to her back. She describes the pain as aching crushing that is currently 9 out of 10. Patient denies any alleviating factors or exacerbating factors but she has an associate shortness of breath and nausea. The pain does not radiate and denies any similar complaints in the past. She tried to take her medication today but unable to secondary to nausea and vomited them up. She denies any headache, dizziness, abdominal pain, or focal weakness or numbness. Pt complaint: chest pain Onset (ago): Just [employer] WORK[employer] Duration: constant Onset: during rest, awoke with symptoms Pain Location: left chest Severity scale (1-10): 10 Improves with: nothing Worsens with: nothing Associated symptoms: Reports: nausea, vomiting, dyspnea, palpitations. Denies: diaphoresis, sense of impending doom, fever, cough, leg swelling Treatments prior to arrival chest pain: none - Related Data Home Medications Medication Instructions Recorded Confirmed Atorvastatin [Lipitor] 40 mg PO HS 05/09/17 01/21/18 Bumetanide [Bumex] 1 mg PO BID 10/05/17 01/21/18 Polyethylene Glycol 3350 [MiraLAX] 17 gm PO DAILY 11/17/17 01/21/18 Sertraline [Zoloft] 100 mg PO DAILY 11/17/17 01/21/18 Alendronate Sodium [Fosamax] 70 mg PO QWEEK 11/22/17 01/21/18 Rivaroxaban [Xarelto] 10 mg PO DAILY 11/22/17 01/21/18 Tramadol HCl [Ultram] 50 mg PO QID PRN 11/22/17 01/21/18 Metoprolol [Lopressor] 12.5 mg PO BID 01/21/18 01/21/18 Previous Rx's Medication Instructions Recorded HYDROcodone/Acet 5/325 mg [[place] 1 tab PO Q6H PRN #16 tab 09/06/17 5-325 mg] Ondansetron ODT [Zofran ODT] 4 mg PO TID PRN #24 tab.rapdis 11/26/17 Digoxin [Lanoxin] 0.125 mg PO QOD #15 tablet 12/18/17 Isosorbide MONOnitrate (24 HR) 30 mg PO DAILY #30 tab.er.24h 12/18/17 [Imdur] Allergies Allergy/AdvReac Type Severity Reaction Status Date / Time diphenhydramine Allergy Rash Verified 11/22/17 13:50 [From Benadryl] morphine Allergy Rash Verified 11/22/17 13:50 Tetanus Vaccines and Toxoid Allergy See Verified 11/22/17 13:50 [Tetanus Vaccines & Toxoid] Comments All systems ED: reviewed and negative except as stated. Review of Systems: As Per HPI Chest Pain PMH - Past Medical History Medical history: Reports: atrial fibrillation, cancer, cardiomyopathy, CHF, hyperlipidemia, hypertension, myocardial infarction, valvular heart disease, other Surgical history: Reports: appendectomy, cholecystectomy, hysterectomy, pacemaker/AICD, other Psychiatric history: Reports: anxiety, depression PRACTICE PROFESSIONAL history: Reports: no PRACTICE PROFESSIONAL history - Social History Smoking Status: Never smoker Alcohol use: Reports: none Drug use: Reports: none Physical Exam - General Limitations: no limitations General appearance: alert, in distress - Head Head exam: atraumatic, normocephalic, normal inspection - Eye Eye exam: Present: normal appearance, PERRL, EOMI - ENT ENT exam: normal exam, normal oropharynx, mucous membranes moist - Neck Neck exam: Present: normal inspection, full ROM, trachea midline - Chest Chest inspection: Present: normal inspection, symmetric chest wall rise - Respiratory Respiratory exam: Present: normal lung sounds bilaterally - Cardiovascular Cardiovascular exam: Present: tachycardia. Absent: JVD - Abdominal Exam Abdominal exam: Present: soft. Absent: tenderness, distention, guarding, rebound, rigidity, mass, pulsatile mass - Extremities Exam Extremities exam: Present: normal inspection, full ROM, normal capillary refill. Absent: tenderness, pedal edema, calf tenderness - Back Exam Back exam: Present: normal inspection, full ROM. Absent: tenderness - Neurological Exam Neurological exam: Present: alert, oriented X3, CN II-XII intact, normal gait - Psychiatric Psychiatric exam: Present: normal affect, normal mood - Skin Skin exam: Present: warm, dry, intact, normal color Course Vital Signs Temperature 97.8 F 01/21/18 08:58 Pulse Rate 130 01/21/18 08:58 Respiratory Rate 18 01/21/18 08:58 Blood Pressure 152/111 01/21/18 08:58 O2 Sat by Pulse Oximetry 96 01/21/18 08:58 Temperature 97.8 F 01/21/18 08:58 Pulse Rate 104 01/21/18 10:56 Respiratory Rate 18 01/21/18 10:56 Blood Pressure 131/95 01/21/18 10:56 O2 Sat by Pulse Oximetry 95 01/21/18 10:56 Oxygen Delivery Oxygen Delivery Nasal Cannula Chest Pain - MDM Narrative Medical decision making narrative: Angina pain with no abnormal EKG, blood work or chest x-ray findings. The patient's pain improved after Tylenol was given to her. She will be admitted for observation and serial troponins. The patient is stable and improved with her heart rate after Lopressor was given to her. No clinical suspicion for PE or aortic dissection based on history and physical exam. - Differential Diagnosis Likely: stable angina, atypical chest pain, costalchondritis, chest pain, biliary colic - Medical Records Medical records reviewed: Yes I reviewed the patient's medical records. - Lab Data Lab results reviewed: Yes I reviewed the patient's lab results. Result diagrams: 01/21/18 09:30 01/21/18 09:30 Lab Results 01/21/18 01/21/18 01/21/18 Range/Units 09:30 09:30 09:30 WBC 10.0 (4.3-11.1) K/mcL RBC 4.79 (3.82-4.97) M/mcL Hgb 14.2 (11.5-15.4) g/dL Hct 43.6 (35.3-44.9) % MCV 91.0 (83.0-100.0) fL MCH 29.6 (28.0-33.3) pg MCHC 32.6 (31.6-35.5) g/dL RDW 14.9 H (11.5-14.5) % Plt Count 196 (140-400) K/mcL MPV 10.0 (9.4-12.4) fL Immature Gran % 0.6 (0-4) % Seg Neutrophils % 73.8 % Lymphocytes % 17.7 % Monocytes % 4.3 % Eosinophils % 3.2 % Basophils % 0.4 % Neutrophils # 7.4 (1.6-8.9) K/mcL Lymphocytes # 1.8 (0.6-4.6) K/mcL Monocytes # 0.4 (0.0-1.3) K/mcL Eosinophils # 0.3 (0.0-0.6) K/mcL Basophils # 0.0 (0.0-0.2) K/mcL PT 10.6 (9.4-12.1) Seconds INR 1.0 APTT 31.9 (26.0-36.0) Seconds Sodium (136-145) mEq/L Potassium (3.5-5.1) mEq/L Chloride (98-107) mEq/L Carbon Dioxide (23-29) mEq/L BUN (6-20) mg/dL Creatinine (0.60-1.20) mg/dL Est GFR ( Amer) (> 60) Est GFR (Non-Af Amer) (> 60) BUN/Creatinine Ratio (6-26) Glucose (70-105) mg/dL Calculated Osmolality (280-300) Calcium (8.6-10.3) mg/dL Troponin I (< 0.04) ng/mL B-Natriuretic Peptide 712 H (Less than 100) pg/mL 01/21/18 Range/Units 09:30 WBC (4.3-11.1) K/mcL RBC (3.82-4.97) M/mcL Hgb (11.5-15.4) g/dL Hct (35.3-44.9) % MCV (83.0-100.0) fL MCH (28.0-33.3) pg MCHC (31.6-35.5) g/dL RDW (11.5-14.5) % Plt Count (140-400) K/mcL MPV (9.4-12.4) fL Immature Gran % (0-4) % Seg Neutrophils % % Lymphocytes % % Monocytes % % Eosinophils % % Basophils % % Neutrophils # (1.6-8.9) K/mcL Lymphocytes # (0.6-4.6) K/mcL Monocytes # (0.0-1.3) K/mcL Eosinophils # (0.0-0.6) K/mcL Basophils # (0.0-0.2) K/mcL PT (9.4-12.1) Seconds INR APTT (26.0-36.0) Seconds Sodium 138 (136-145) mEq/L Potassium 4.3 (3.5-5.1) mEq/L Chloride 107 (98-107) mEq/L Carbon Dioxide 21 L (23-29) mEq/L BUN 16 (6-20) mg/dL Creatinine 0.94 (0.60-1.20) mg/dL Est GFR ( Amer) > 60 (> 60) Est GFR (Non-Af Amer) > 60 (> 60) BUN/Creatinine Ratio 17 (6-26) Glucose 114 H (70-105) mg/dL Calculated Osmolality 288 (280-300) Calcium 9.7 (8.6-10.3) mg/dL Troponin I < 0.03 (< 0.04) ng/mL B-Natriuretic Peptide (Less than 100) pg/mL - Radiology Data Radiology results reviewed: Yes I reviewed the patient's radiology results. Chest X-Ray 01/21/18 09:15 IMPRESSION: Increased interstitial markings throughout the lungs, possibly accentuated by low lung volumes. Stable mild cardiomegaly and central vascular congestion without overt failure. D/ / Chepe Mcdonnell MD / Chepe Mcdonnell MD Interpreting Provider: Chepe Mcdonnell MD - EKG Data EKG attestation: Yes I reviewed and interpreted this EKG. Rate: tachycardia Rhythm: PVC's, other (paced) When compared to previous EKG there are: no significant changes Interpretation: unchanged when compared to prior tracing (date) (11/20/17)
[2018-01-21 09:51] LABS: Activated Partial Thrombo Time 31.9 Seconds (26.0-36.0)
[2018-01-21 09:57] LABS: BUN/Creatinine Ratio 17 (6-26); Blood Urea Nitrogen 16 mg/dL (6-20); Calcium 9.7 mg/dL (8.6-10.3); Carbon Dioxide 21 mEq/L (23-29); Chloride 107 mEq/L (98-107); Glucose 114 mg/dL (70-105); Osmolality,Calculated 288 (280-300); Potassium 4.3 mEq/L (3.5-5.1); Sodium 138 mEq/L (136-145); eGFR For African Americans > 60 (> 60); eGFR For Non-African Americans > 60 (> 60)
[2018-01-21 10:01] LABS: Troponin I < 0.03 ng/mL (< 0.04)
[2018-01-21] MEDS ORDERED: Acetaminophen 325 MG TABLET PO PRN (12:52)
[2018-01-21] MEDS ORDERED: NON-FORMULARY MEDICATION 1 EACH EACH (Alendronate Sodium [Fosamax] 70 MG) PO SCH (12:52)
[2018-01-21] MEDS ORDERED: Naloxone 0.4 MG/ML INJ IVP PRN ×2 (12:52)
[2018-01-21] MEDS ORDERED: *HR* Digoxin 0.125 MG TABLET PO SCH (12:52)
[2018-01-21] MEDS: traMADol 50 MG TABLET PO PRN ×2 (13:22→23:41)
[2018-01-21] MEDS: Ondansetron ODT 4 MG TAB.RAPDIS PO PRN ×2 (13:22→20:54)
--- NOTE | 2018-01-21 14:15 | Internal Med History&Physical ---
Date of Encounter: 01/21/18 Time of Encounter: 13:45 Assessment and Plan (1) Chest pain Current visit: No Status: Acute Unlikely myocardial ischemia from history and physical. I will start her on naproxen and monitor. Qualifiers: Chest pain type: precordial pain Qualified Code(s): R07.2 - Precordial pain (2) CHF (congestive heart failure) Current visit: No Status: Chronic Will increase isosorbide and Lanoxin. Continue Bumex and Lopressor Qualifiers: Heart failure type: systolic Heart failure chronicity: chronic Qualified Code(s): I50.22 - Chronic systolic (congestive) heart failure (3) Atrial fibrillation Current visit: No Status: Chronic Regular rhythm possibly secondary to ICD. Continue Xarelto. Qualifiers: Atrial fibrillation type: paroxysmal Qualified Code(s): I48.0 - Paroxysmal atrial fibrillation (4) Tachycardia Current visit: No Status: Acute We will increase metoprolol dose. Internal Medicine - H&P: HPI Chief complaint: Dyspnea, chest discomfort Admitted From: Emergency Dept Plans for Post Hospital Care: Home History of present illness: Ms. Bustos is a 57 year old female who came to emergency room complaining of dyspnea that awakened her this morning. She reports a sharp discomfort in her left chest area. She had no significant cough. She had a single episode of vomiting. She was brought to emergency room and received 3 nitroglycerin pills which she states lessened but did not completely relieve her chest discomfort. She was admitted to [facility] floor for ongoing care needs. Her cardiovascular history is significant for hypertension and chronic atrial fibrillation. She had ICD/pacemaker placed in 2002 for nonischemic cardiomyopathy. She had a replacement unit in September 2013. She had heart cath in 2008 which was negative and reports a repeat heart catheter done in September 2017 at [facility] showed no significant stenoses. She had chest CTA during in November 2017 [facility] hospitalization without evidence of pulmonary embolus or other significant pathology seen. Echocardiogram done 03/2018 showed LVEF of 15-20%. The interventricular septum and posterior wall thickness measurements were 0.97 and 1.30 cm respectively. She reports an echocardiogram done at [facility] September 2017 showed LVEF of 30-35%. She denies history of DVT or pulmonary embolus. Past Med Surg Social Fam HX - Past Medical History Medical history: atrial fibrillation, cancer, cardiomyopathy, CHF, hyperlipidemia, hypertension, myocardial infarction, valvular heart disease, other Additional medical history: palpitations, hx of anorexia Psychiatric history: anxiety, depression - Past Surgical History Surgical History: appendectomy, cholecystectomy, hysterectomy, pacemaker/AICD, other Additional surgical history: fatty tumor removed 2015 from hip. fatty tumor removed 2013 from wrist. carpal tunnel sx bi-lat hands - Social History Smoking Status: Former smoker Smokeless Tobacco Status: No Alcohol use: none Drug use: none - Family History Mother Family Member Ethnicity: Non- Living Status: Still Living Hx Family Cardiac Disorders: Yes Hx Family Endocrine Disorder: Yes Father Family Member Ethnicity: Non- Living Status: Still Living Hx Family Endocrine Disorder: Yes Internal Medicine - H&P: Meds Atorvastatin [Lipitor] 40 mg PO HS 05/09/17 [History] HYDROcodone/Acet 5/325 mg [[place] 5-325 mg] 1 tab PO Q6H PRN #16 tab 09/06/17 [Rx ] Bumetanide [Bumex] 1 mg PO BID 10/05/17 [History] Polyethylene Glycol 3350 [MiraLAX] 17 gm PO DAILY 11/17/17 [History] Sertraline [Zoloft] 100 mg PO DAILY 11/17/17 [History] Alendronate Sodium [Fosamax] 70 mg PO QWEEK 11/22/17 [History] Rivaroxaban [Xarelto] 10 mg PO DAILY 11/22/17 [History] Tramadol HCl [Ultram] 50 mg PO QID PRN 11/22/17 [History] Ondansetron ODT [Zofran ODT] 4 mg PO TID PRN #24 tab.rapdis 11/26/17 [Rx] Digoxin [Lanoxin] 0.125 mg PO QOD #15 tablet 12/18/17 [Rx] Isosorbide MONOnitrate (24 HR) [Imdur] 30 mg PO DAILY #30 tab.er.24h 12/18/17 [ Rx] Metoprolol [Lopressor] 12.5 mg PO BID 01/21/18 [History] 3 Allergy/AdvReac Type Severity Reaction Status Date / Time diphenhydramine Allergy Rash Verified 11/22/17 13:50 [From Benadryl] morphine Allergy Rash Verified 11/22/17 13:50 Tetanus Vaccines and Toxoid Allergy See Verified 11/22/17 13:50 [Tetanus Vaccines & Toxoid] Comments All Systems PM: A 10-system review of systems was performed and is negative for pertinent findings except as documented above in the HPI. Review of systems: Review of systems from her December 2017 [facility] hospitalization were reviewed and revised as below. Gen.: Her weight has decreased from 79.832 kg on 05/03/2015 to 72.575 kg now Cardiovascular: As per history of present illness Respiratory: She smoked from age [age] never up to one pack per day. She has not had PFTs but has been prescribed oxygen which she uses at bedtime and when necessary during the daytime. She has not been tested for sleep apnea. GI: She is status post cholecystectomy. She had colon polyps removed during a colonoscopy approximately 2011. She denies disorders of her liver or exocrine pancreas : She denies hematuria dysuria or kidney stones Neurologic: She denies large distribution strokes or seizures Endocrine: She denies diabetes or thyroid disease or hyperlipidemia Hematology/oncology: She denies blood disorders cancers or anemia Psychiatric: She has anxiety and has had panic attacks in the past but denies depression or other mental health issues [place] skeletal: She has arthritis of spine but denies gout or osteoporosis - Constitutional Vitals: Temp Pulse Resp BP Pulse Ox 97.8 F 104 18 131/95 95 01/21/18 08:58 01/21/18 10:56 01/21/18 10:56 01/21/18 10:56 01/21/18 10:56 Exam: Gen.: She is a well-developed well-nourished female lying in bed who appears in no acute distress HEENT: Head is atraumatic and normocephalic. Eyes: EOMI. There is no scleral icterus. Mouth: Mucosa is moist. Neck: Supple and nontender. There is no thyromegaly or adenopathy noted. Heart: Regular without murmurs gallops or ectopics Lungs: No wheezes or crackles are heard. Chest: She has mild tenderness in her left chest and costosternal area but states "that is not the pain" on slight compression. Abdomen: Soft and nontender. No masses or guarding are noted. Extremities: There is no cyanosis edema or clubbing noted. Dorsalis pedis and posttibial pulses are 1-2 over 2 bilaterally. Neurologic: Mental status: She is talkative and a good historian. Cranial nerves: Smile is symmetric. Forehead wrinkles bilaterally. Tongue protrudes midline. EOMI. Motor: There is no pronator drift. Cerebellar: Finger to nose is intact bilaterally Skin: Warm and dry Internal Med - H&P Results - Labs CBC & Chem 7: 01/21/18 09:30 01/21/18 09:30 Labs: Cardiac Enzymes 01/21/18 Range/Units 11:45 Troponin I < 0.03 (< 0.04) ng/mL
[2018-01-21] MEDS: Bumetanide 1 MG TABLET PO SCH (17:21)
[2018-01-21] MEDS: ALPRAZolam 0.25 MG TABLET PO PRN ×2 (17:29→23:42)
--- NOTE | 2018-01-21 17:59 | Electrocardiograph Report ---
[address] [address] Test Date: 2018-01-21 Pat Name: Shani Bustos Department: [id number] Room: [facility] Gender: F [employer] Architect: [id number] : 1960 Requested By: Mono Cameron Order Number: [id number] Reading MD: Miguel Angel River Measurements Intervals [place] Rate: 124 P: 59 RI: 133 QRS: 182 QRSD: 114 T: 44 QT: 349 QTc: 423 Interpretive Statements ELECTRONIC VENTRICULAR PACEMAKER WITH PVC Electronically Signed On 01-21-2018 17:57:52 EDT by Miguel Angel River
[2018-01-21] MEDS: *HR* HYDROcodone/Acet 5/325 mg TABLET PO PRN (20:53)
[2018-01-21] MEDS: Ondansetron 4 MG/2 ML VIAL IVP PRN (21:00)
[2018-01-22] MEDS: *HR* HYDROcodone/Acet 5/325 mg TABLET PO PRN (03:34)
[2018-01-22] MEDS: Ondansetron 4 MG/2 ML VIAL IVP PRN (05:11)
[2018-01-22] MEDS: ALPRAZolam 0.25 MG TABLET PO PRN (05:11)
[2018-01-22 06:49] VITALS: BP 99/69
[2018-01-22] MEDS: traMADol 50 MG TABLET PO PRN (08:01)
[2018-01-22] MEDS: Bumetanide 1 MG TABLET PO SCH (08:02)
--- NOTE | 2018-01-22 08:41 | Discharge Summary ---
Date of Encounter: 01/22/18 Time of Encounter: 08:30 - Discharge Diagnosis (1) Chest pain Priority: Primary Status: Acute Qualifiers: Chest pain type: precordial pain Qualified Code(s): R07.2 - Precordial pain (2) CHF (congestive heart failure) Priority: Secondary Status: Chronic Qualifiers: Heart failure type: systolic Heart failure chronicity: chronic Qualified Code(s): I50.22 - Chronic systolic (congestive) heart failure (3) Atrial fibrillation Priority: Secondary Status: Chronic Qualifiers: Atrial fibrillation type: paroxysmal Qualified Code(s): I48.0 - Paroxysmal atrial fibrillation (4) Tachycardia Priority: Secondary Status: Resolved Hospital course: Ms. Bustos is a 57 year old female who came to emergency room complaining of dyspnea that awakened her this morning. She reports a sharp discomfort in her left chest area. She had no significant cough. She had a single episode of vomiting. She was brought to emergency room and received 3 nitroglycerin pills which she states lessened but did not completely relieve her chest discomfort. She was admitted to [facility] for ongoing care needs. Initial orders were written by the emergency room physician. I saw her on January 21 and performed a history and physical. Repeat cardiac enzymes show no evidence of myocardial damage. When I saw her I did not think she had myocardial ischemia as the source of the pain. I felt the pain was likely chest wall origin. I gave her Naprosyn and she was pain-free when I saw her on January 22. I felt she was stable for discharge home. She can continue OTC naproxen for 2-3 days at discharge as needed. Isosorbide, Lanoxin, and metoprolol doses were increased to improve heart failure control. She will continue these higher doses at discharge. On January 22 I felt she was stable for discharge home. She will follow with her PCP Belinda Byers CNP within 1 week. - Time Spent with Patient Total time spent providing and/or coordinating discharge services: - Discharge Medications Prescriptions: Digoxin [Lanoxin] 0.125 mg PO DAILY #30 tablet Isosorbide MONOnitrate (24 HR) [Imdur] 60 mg PO DAILY #30 tab.er.24h Metoprolol [Lopressor] 25 mg PO BID #60 tablet Home Medications: Atorvastatin [Lipitor] 40 mg PO HS 05/09/17 [History] HYDROcodone/Acet 5/325 mg [[place] 5-325 mg] 1 tab PO Q6H PRN #16 tab 09/06/17 [Rx ] Bumetanide [Bumex] 1 mg PO BID 10/05/17 [History] Polyethylene Glycol 3350 [MiraLAX] 17 gm PO DAILY 11/17/17 [History] Sertraline [Zoloft] 100 mg PO DAILY 11/17/17 [History] Alendronate Sodium [Fosamax] 70 mg PO QWEEK 11/22/17 [History] Rivaroxaban [Xarelto] 10 mg PO DAILY 11/22/17 [History] Tramadol HCl [Ultram] 50 mg PO QID PRN 11/22/17 [History] Ondansetron ODT [Zofran ODT] 4 mg PO TID PRN #24 tab.rapdis 11/26/17 [Rx] Digoxin [Lanoxin] 0.125 mg PO DAILY #30 tablet 01/22/18 [Rx] Isosorbide MONOnitrate (24 HR) [Imdur] 60 mg PO DAILY #30 tab.er.24h 01/22/18 [ Rx] Metoprolol [Lopressor] 25 mg PO BID #60 tablet 01/22/18 [Rx] Allergies/Adverse Reactions: 3 Allergy/AdvReac Type Severity Reaction Status Date / Time diphenhydramine Allergy Rash Verified 11/22/17 13:50 [From Benadryl] morphine Allergy Rash Verified 11/22/17 13:50 Tetanus Vaccines and Toxoid Allergy See Verified 11/22/17 13:50 [Tetanus Vaccines & Toxoid] Comments Date of admission: 01/21/18 10:42 Primary care physician: Belinda Byers, - Constitutional Vitals: Temp Pulse Resp BP Pulse Ox 97.4 F L 71 16 99/69 98 01/22/18 06:47 01/22/18 06:47 01/22/18 06:47 01/22/18 06:47 01/22/18 06:47 - Patient Status Disposition: Home, Self-Care Condition: Fair Overall status at discharge: patient is progressing back to baseline - Discharge Instructions Follow Up With: Belinda Byers CNP [Primary Care Provider] - 1 week - Diet and Activity Activity: resume usual activities as tolerated Diet: advance to your usual diet
[2018-01-22] MEDS ORDERED: Isosorbide MONOnitrate (24 HR) 30 MG TAB.ER.24H PO SCH (09:00)
[2018-01-22] MEDS ORDERED: *HR* Digoxin 0.125 MG TABLET PO SCH (09:00)
[2018-01-22] MEDS ORDERED: Isosorbide MONOnitrate (24 HR) 60 MG TAB.ER.24H PO SCH (09:00)
[2018-01-22] MEDS ORDERED: *HR* Rivaroxaban 10 MG TABLET PO SCH (09:00)
== END 2018-01-22 10:28 | disposition home or self-care (01) ==
LOC: INPPIK 08:53 → EMEROOPIK 08:53 → INPPIK 10:58
PROVIDERS: ADMIT Internal Medicine; ATTEND Internal Medicine